=== PATIENT | male | born 1995 | race Hispanic/Latino ===

== ENCOUNTER 2018-04-13 01:17 | Emergency (ER) | payer SELFPAY ==
[~2018-04-13] VITALS: Ht 185.4 cm; Wt 70.4 kg
[~2018-04-13 01:17] MED LIST: AMOXICILLIN500 MG PO; CEPHALEXIN500 MG PO; PERCOCET 5/325M1 TAB PO; TYLENOL # 31 TAB PO
[2018-04-13] MEDS ORDERED: AMOXICILLIN500 MG PO (01:41)
[2018-04-13] MEDS ORDERED: PERCOCET 5/325M1 TAB PO (01:41)
[2018-04-13 01:44] VITALS: BP 118/72
== END 2018-04-13 01:51 | disposition home or self-care (01) | DRG 159 ==
LOC: ED 01:17
DX: K08.89 Other specified disorders of teeth and supporting structures (principal)